=== PATIENT | male | born 1970 | race Caucasian/White ===

== ENCOUNTER 2018-12-23 16:22 | Emergency (ER) | payer SELFPAY ==
[~2018-12-23] VITALS: Ht 160 cm; Wt 68.5 kg
[2018-12-23 17:11] VITALS: Ht 160 cm; Wt 68.5 kg
[2018-12-23 18:34] LABS: BASOPHIL % 0.4 % (0-2); PLATELET COUNT 276 x10^3mcL (130-400); RED CELL DISTRIBUTION WIDTH 12.3 % (11.5-14.5)
[2018-12-23 18:36] LABS: CALCIUM 9.3 mg/dL (8.5-10.1); CARBON DIOXIDE 28.9 mmol/L (21-32); CHLORIDE SERUM 99 mmol/L (98-107); CREATININE SERUM 0.8 mg/dL (0.7-1.3); GFR1 > 60 mL/min; GLUCOSE SERUM 309 mg/dL (74-106); POTASSIUM SERUM 3.6 mmol/L (3.5-5.1); SODIUM SERUM 136 mmol/L (136-145)
[2018-12-23 18:48] LABS: ALBUMIN 3.7 g/dL (3.4-5.0); ALKALINE PHOSPHATASE 172 U/L (46-116); ALT/SGPT 27 U/L (16-63); AST/SGOT 9 U/L (15-37); BILIRUBIN TOTAL 0.6 mg/dL (0.20-1.00); CHOLESTEROL 194 mg/dL (<200); T4(THYROXINE) 8.2 ug/dL (4.7-13.3); TOTAL PROTEIN, SERUM 7.9 g/dL (6.4-8.2)
[2018-12-23 18:52] LABS: HDL CHOLESTEROL 31 mg/dL (40-60)
[2018-12-23 20:02] LABS: AMPHETAMINE QUAL UR NONE DETECTED (See below)
[2018-12-23 21:12] VITALS: BP 125/88
== END 2018-12-23 21:12 | disposition home or self-care (01) ==
LOC: ED 16:22
PROVIDERS: Emergency Medicine
DX: T63.481A Toxic effect of venom of other arthropod, accidental (unintentional), initial encounter (principal); L03.114 Cellulitis of left upper limb; E11.65 Type 2 diabetes mellitus with hyperglycemia; Y92.89 Other specified places as the place of occurrence of the external cause
CPT/HCPCS: 82962; 90715; J1815; J3490; J7030

== ENCOUNTER 2018-12-28 12:04 | Inpatient (IN) | payer MEDICAID ==
[~2018-12-28] VITALS: Ht 160 cm; Wt 70.3 kg
[2018-12-28 12:14] VITALS: Ht 160 cm; Wt 70.3 kg
--- NOTE | 2018-12-28 12:37 | NUR ---
PT PRESENTS TO ED WITH C/O OF ABSCESS ON LT FOREARM. PT WAS SEEN HERE ON SUNDAY FOR SAME ISSUE BUT ABSCESS HAS GROWN AND BECOME MORE PAINFUL. PT STS HE ATTEMPTED TO DRAIN ABSCESS AT HOME LAST NIGHT. PT DENIES FEVER. PT AAOX4, RESP E/U, NO ACUTE DISTRESS NOTED AT THIS TIME.
[2018-12-28 13:31] LABS: BASOPHIL % 0.3 % (0-2); PLATELET COUNT 321 x10^3mcL (130-400); RED CELL DISTRIBUTION WIDTH 12.3 % (11.5-14.5)
[2018-12-28 13:35] LABS: CALCIUM 8.4 mg/dL (8.5-10.1); CARBON DIOXIDE 25.3 mmol/L (21-32); CHLORIDE SERUM 103 mmol/L (98-107); CREATININE SERUM 0.9 mg/dL (0.7-1.3); GFR1 > 60 mL/min; GLUCOSE SERUM 359 mg/dL (74-106); POTASSIUM SERUM 4.6 mmol/L (3.5-5.1); SODIUM SERUM 137 mmol/L (136-145)
[2018-12-28 13:37] LABS: ALKALINE PHOSPHATASE 149 U/L (46-116); ALT/SGPT 27 U/L (16-63); AST/SGOT 19 U/L (15-37); BILIRUBIN TOTAL 0.2 mg/dL (0.20-1.00); TOTAL PROTEIN, SERUM 6.8 g/dL (6.4-8.2)
[2018-12-28 13:38] LABS: ALBUMIN 2.9 g/dL (3.4-5.0)
[2018-12-28 13:41] LABS: microscopic required? NO
--- NOTE | 2018-12-28 13:44 | NUR ---
PT MEDICATED ORDERED, NO ADVERSE REACTIONS NOTED.
--- NOTE | 2018-12-28 13:53 | NUR ---
PT OFF FLOOR TAKEN FOR XRAY
[2018-12-28 14:13] LABS: urine erythrocyte NEGATIVE (NEGATIVE)
[2018-12-28] MEDS ORDERED: METFORMIN HYDR500 M1 PO (14:45)
[2018-12-28] MEDS ORDERED: CEPHALEXIN500 MG PO (14:46)
[2018-12-28] MEDS ORDERED: SULFAMETHOXAZOL1 TA3 PO (14:46)
[2018-12-28] MEDS ORDERED: IBUPROFEN400 MG PO (14:46)
[2018-12-28] MEDS ORDERED: GLYBURIDE5 MG PO (14:47)
--- NOTE | 2018-12-28 15:15 | NUR ---
REPORT GIVEN TO LACY NEWMAN ON TELE UNIT TO ASSUME CARE OF PT.
[2018-12-28 15:30] LABS: CHOLESTEROL/HDL RATIO 7.2; MAGNESIUM 1.9 mg/dL (1.8-2.4); PHOSPHOROUS 2.7 mg/dL (2.5-4.9)
[2018-12-28 15:39] LABS: T3 TOTAL 0.95 ng/mL
[2018-12-28 15:47] LABS: FREE T4 1.02 ng/dL (0.76-1.46); FREE THYROXINE INDEX 2.4 ug/dL (1.4-4.5); T4(THYROXINE) 7.2 ug/dL (4.7-13.3)
--- NOTE | 2018-12-28 16:04 | NUR ---
PATIENT ARRIVED VIA [facility] FROM ER ACCOMPANIED BY RN AND EMT. PATIENT AMBULATED TO BED WITH NO ASSISTNACE, PAIN STEADY. A/O X4 DENIES PAIN. 20G IV TO RIGHT FOREARM. ABSESS PRESENT TO LEFT FOREARM. SLIGHT DISCOMFORT ON ARM WHEN MOVED. ORIETED TO ROOM AND CALL LIGHT SYSTEM. CALL LIGHT WITHIN REACH. MRSA CULTRE TAKEN AND CULTURE OF WOUND TO LEFT FOREARM TAKEN
[2018-12-28 16:28] VITALS: BP 117/73
--- NOTE | 2018-12-28 16:56 | NUR ---
STARTED FLUIDS PER MAR. PATIENT CURRENTLY GETTING ULTRASOUND OF LEFT FOREARM.
--- NOTE | 2018-12-28 17:18 | NUR ---
PATIENTREQUESTED PAIN MEDICATION FOR THE PAIN IN HIS RIGHT FOREARM. ULTRASOUND TO THE AREA INCREASED PAIN. NORCO ADMINISTERED. NO OTHER COMPLAINTS A TTHIS TIME. CALL LIGHT WITHIN REACH
--- NOTE | 2018-12-28 18:27 | NUR ---
STARTED ZOSYN PER AUG. PATIENT HAD EATEN DINNER TRAY. NO COMPLAINTS AT THIS TIME. PAIN IMPROVED. CALL LIGHT WITHIN REACH
[2018-12-28 18:53] LABS: AMPHETAMINE QUAL UR NONE DETECTED (See below)
[2018-12-28 18:55] VITALS: BP 115/58
--- NOTE | 2018-12-28 19:15 | NUR ---
ADMINISTERED VANCO PER MAR. PATIENT STABLE WITH NO COMPLAINTS. CALL LIGHT WITHIN REACH, WILL ENDORSE TO NIGHT NURSE
--- NOTE | 2018-12-28 19:25 | NUR ---
PT RECEIVED A/O X4, ABLE TO MAKE NEEDS KNOWN. TELE #6, DENIES ANY CP/PRESSURE. BREATHING IS EVEN AND UNLABORED ON RA, DENIES SOB, NO RESP DISTRESS NOTED. ABD SOFT AND NONDISTENDED, DENIES N/V. VOIDS FREELY, BRP. AMBULATORY WITH STEADY GAIT. LFA CELLULITIS WITH ERYTHEMA AND PUS NOTED, OFELIA. PT ADMITS TO 5/10 LFA PAIN, PT STATES "PAIN IS TOLERABLE." PT REFUSES ANY PAIN MEDS AT THIS TIME. IVF INFUSING WELL TO RFA, SITE FREE FROM REDNESS OR SWELLING. BED IN LOWEST SETTING, SIDE RAILS UP X2, CALL LIGHT WITHIN REACH. NO ACUTE DISTRESS NOTED. WILL CONT TO MONITOR.
[2018-12-28 20:41] VITALS: BP 98/70
--- NOTE | 2018-12-28 21:20 | NUR ---
PT C/O 01/25 LFA PAIN, PRN NORCO GIVEN ORDERED. NO ACUTE DISTRESS OBSERVED. CALL LIGHT WITHIN REACH. WILL CONT TO MONITOR.
[2018-12-29 05:57] VITALS: BP 101/63
--- NOTE | 2018-12-29 06:40 | NUR ---
PT SLEPT WELL THROUGHOUT THE EVENING. BREATHING IS EVEN AND UNLABORED, NO RESP DISTRESS NOTED. PT DENIES HAVING ANY PAIN AT THIS TIME. IV TO RFA, PATENT AND INTACT, SITE WNL. NO ACUTE CHANGES ENCOUNTERED DURING SHIFT. ALL NEEDS MET AND ANTICIPATED. CALL LIGHT WITHIN REACH. WILL ENDORSE CARE TO AM NURSE.
[2018-12-29 06:46] LABS: CARBON DIOXIDE 25.3 mmol/L (21-32); CHLORIDE SERUM 105 mmol/L (98-107); CREATININE SERUM 0.7 mg/dL (0.7-1.3); GFR1 > 60 mL/min; GLUCOSE SERUM 193 mg/dL (74-106); MAGNESIUM 1.9 mg/dL (1.8-2.4); PHOSPHOROUS 3.5 mg/dL (2.5-4.9); POTASSIUM SERUM 4.1 mmol/L (3.5-5.1); SODIUM SERUM 140 mmol/L (136-145)
[2018-12-29 06:53] LABS: BASOPHIL % 0.4 % (0-2); PLATELET COUNT 315 x10^3mcL (130-400); RED CELL DISTRIBUTION WIDTH 12.3 % (11.5-14.5)
--- NOTE | 2018-12-29 07:18 | NUR ---
PT IN NO ACUTE DISTRESS. CONTINUITY OF CARE ENDORSED TO [facility]. ALL QUESTIONS AND CONCERNS ADDRESSED.
[2018-12-29 07:30] VITALS: BP 104/69
--- NOTE | 2018-12-29 07:34 | NUR ---
HANDOFF REPORT RECEIVED. PATIENT AWAKE IN BED. NOTED SWELLING ERRYTHEMA SUHAIL. STATED " PAIN IS 7 BUT I DONT NEED ANYTHING RIGHT NOW. INSTRUCTED TO NOTIFY RN FOR ANY NEED. CALL RAY WITHIN REACH.
--- NOTE | 2018-12-29 08:25 | NUR ---
COMPLAINED OF 10/10 HEADACHE. BP 104/69. TYLENOL 650 PO GIVEN.
--- NOTE | 2018-12-29 11:33 | NUR ---
IN BED RESTING. ENCOURAGED TO AMBULATE TID.
[2018-12-29 11:50] VITALS: BP 103/79
--- NOTE | 2018-12-29 16:32 | NUR ---
ASSUMED CARE OF PT FROM LACY LAGOS. REPORT GIVEN, PT SEEN AT BEDSIDE. COMPLAINED OF PAIN TO L ARM AT WOUND SITE, DESCRIBED BURNING PAIN THROUGHOUT ARM. WILL CARRY OUT MED ORDERS PER EMAR. GAUZE DRESSING TO WOUND CDI. BED IN LOWEST POSITION AND CALL LIGHT WITHIN REACH. WILL CONTINUE TO MONITOR.
--- NOTE | 2018-12-29 16:33 | NUR ---
HANDOFF REPORT GIVEN TO LACY ROME.
[2018-12-29 16:46] VITALS: BP 121/84
--- NOTE | 2018-12-29 19:08 | NUR ---
PT RECEIVED A/O X4, ABLE TO MAKE NEEDS KNOWN. MED-SURG, DENIES ANY CP/PRESSURE. BREATHING IS EVEN AND UNLABORED ON RA, DENIES SOB, NO RESP DISTRESS NOTED. ABD SOFT AND NONDISTENDED, DENIES N/V. VOIDS FREELY, BRP. AMBULATORY WITH STEADY GAIT. LFA CELLULITIS WITH ERYTHEMA, MILD SWELLING, AND MINIMAL SEROSANGUINEOUS DRAINAGE NOTED, PATTED DRY, EMPLOYMENT ASSISTANT. PT ADMITS TO 6/10 LFA PAIN, PT STATES "PAIN IS TOLERABLE." PT REFUSES ANY PAIN MEDS AT THIS TIME. IVF INFUSING WELL TO RFA, SITE FREE FROM REDNESS OR SWELLING. BED IN LOWEST SETTING, SIDE RAILS UP X2, CALL LIGHT WITHIN REACH. NO ACUTE DISTRESS NOTED. WILL CONT TO MONITOR.
[2018-12-29 20:56] VITALS: BP 130/85
--- NOTE | 2018-12-29 21:28 | NUR ---
PT C/O 02/25 LFA PAIN, PRN NORCO GIVEN ORDERED. NO ACUTE DISTRESS NOTED. CALL LIGHT WITHIN REACH. WILL CONT TO MONITOR.
--- NOTE | 2018-12-30 00:08 | NUR ---
PT C/O 8-10 HEADACHE PAIN, PRN TYLENOL GIVEN ORDERED. NO ACUTE DISTRESS NOTED. WILL CONT TO MONITOR.
[2018-12-30 05:37] VITALS: BP 136/88
--- NOTE | 2018-12-30 06:07 | NUR ---
PT SLEPT AT INTERVALS THROUGHOUT THE EVENING. BREATHING IS EVEN AND UNLABORED, NO RESP DISTRESS NOTED. PT DENIES HAVING ANY PAIN AT THIS TIME. IV TO RFA, PATENT AND INTACT, SITE WNL. NO ACUTE CHANGES ENCOUNTERED DURING SHIFT. ALL NEEDS MET AND ANTICIPATED. CALL LIGHT WITHIN REACH. WILL ENDORSE CARE TO AM NURSE.
[2018-12-30 07:05] LABS: BASOPHIL % 0.3 % (0-2); PLATELET COUNT 351 x10^3mcL (130-400); RED CELL DISTRIBUTION WIDTH 12.1 % (11.5-14.5)
[2018-12-30 07:13] LABS: CALCIUM 9.4 mg/dL (8.5-10.1); CARBON DIOXIDE 24.3 mmol/L (21-32); CHLORIDE SERUM 103 mmol/L (98-107); CREATININE SERUM 0.8 mg/dL (0.7-1.3); GFR1 > 60 mL/min; GLUCOSE SERUM 158 mg/dL (74-106); MAGNESIUM 2.1 mg/dL (1.8-2.4); PHOSPHOROUS 4.2 mg/dL (2.5-4.9); POTASSIUM SERUM 4.1 mmol/L (3.5-5.1); SODIUM SERUM 138 mmol/L (136-145)
--- NOTE | 2018-12-30 08:00 | NUR ---
SHIFT ASSESSMENT DONE. PATIENT A/A/OX4. DENIED CHEST PAIN. NO RESP DISTRESS ON RA. AMBULATED ON STEADY GAIT. IVHL'D TO LFA. CELLULITIS TO L ARM. STATED PAIN ON TOLERATED LEVEL, 07/28. SCANT SEROSANGUIOUS DRAIANGE FROM LT ARM WOUND. OFELIA. PULSES STRONG PALPABLE. CALL LIGHT IN REACH.
[2018-12-30 09:23] VITALS: BP 118/89
[2018-12-30] MEDS ORDERED: CLEOCIN HCL150 MG PO (09:31)
--- NOTE | 2018-12-30 12:30 | NUR ---
C/O HEADACHE 4/10 AND LT ARM WOUND PAIN 3/10; TYLENOL 650MG PO GIVEN. CONTINUE MONITOR.
[2018-12-30 12:36] VITALS: BP 118/89
[2018-12-30] MEDS ORDERED: ACCU-CHEK1 EAC2 (12:50)
[2018-12-30] MEDS ORDERED: METFORMIN HCL500 MG PO (12:50)
--- NOTE | 2018-12-30 13:30 | NUR ---
STATED HEADACHE AND L ARM PAIN RELIEVED. PHOTO OF L ARM WOUND TAKEN AND FILED.
--- NOTE | 2018-12-30 13:55 | NUR ---
D/C TO HOME PER ORDER. INSTRUCTION GIVEN. IV D/C'D. CONDITION STABLE.
--- NOTE | 2018-12-31 07:49 | NUR ---
WOUND CONSULT NOT DONE, PT. DISCHARGED.
== END 2018-12-30 13:55 | disposition home or self-care (01) | DRG 384 ==
LOC: ED 12:04 → MU 14:40 → DU 15:48 → MU 12-29 16:41
PROVIDERS: Emergency Medicine; ADMIT Internal Medicine
DX: S50.862S Insect bite (nonvenomous) of left forearm, sequela (principal); E44.0 Moderate protein-calorie malnutrition; L03.114 Cellulitis of left upper limb; E11.65 Type 2 diabetes mellitus with hyperglycemia; B95.62 Methicillin resistant Staphylococcus aureus infection as the cause of diseases classified elsewhere; E78.5 Hyperlipidemia, unspecified; Z68.27 Body mass index [BMI] 27.0-27.9, adult; Z79.84 Long term (current) use of oral hypoglycemic drugs; W57.XXXS Bitten or stung by nonvenomous insect and other nonvenomous arthropods, sequela
CPT/HCPCS: 82962; 84439; G0378; J0696; J1815; J2270; J2405; J2543; J3370; J7030; J7050; Q0092